=== PATIENT | female | born 1950 | race Caucasian/White ===

== ENCOUNTER → 2017-02-08 | Outpatient (CLI) | payer OTHER, BC ==
[~2017-02-08] MED LIST: ALBUAER19 INH; CHOL2000 PO; DILT1TAB PO; LISI40TA PO; LPT10 PO; MONT1TAB5 PO; MULT-506 PO; OFLO0.3S OPR; PRED1SUS3 OPL; VENL75CA73 PO
[2017-02-08 16:13] LABS: BLOOD UREA NITROGEN 14 mg/dl (7-18); BUN/CREATININE RATIO 22.8 (10-20); CALCIUM 9.7 mg/dl (8.5-10.1); CARBON DIOXIDE 31 mmol/L (21-32); CHLORIDE 106 mmol/L (98-107); CREATININE 0.61 mg/dl (0.60-1.20); GLUCOSE 87 mg/dl (70-99); HDL CHOLESTEROL 55 mg/dl; POTASSIUM 4.7 mmol/L (3.5-5.1); SODIUM 142 mmol/L (136-145)
[2017-02-08 16:17] LABS: ALB/GLOB RATIO 1.2 (0.9-2); ALKALINE PHOSPHATASE 83 U/L (45-117); ALT/SGPT 12 U/L (12-78); AST/SGOT 17 U/L (15-37); CHOLESTEROL 209 mg/dl (0-200); CHOLESTEROL/HDL RATIO 3.8; LDL CHOLESTEROL CALCULATED 120 mg/dl; TRIGLYCERIDES 171 mg/dl (0-150); VERY LOW DENSITY LIPOPROT CALC 34 mg/dl
== END | disposition home or self-care (01) ==
LOC: C.LAB 15:12
PROVIDERS: ATTEND Nurse Practitioner Family
DX: Z11.59 Encounter for screening for other viral diseases (principal); E78.5 Hyperlipidemia, unspecified

== ENCOUNTER → 2017-05-18 | Outpatient (CLI) | payer OTHER, BC ==
--- NOTE | 2017-05-18 12:41 | MAMMOGRAPHY REPORT ---
BILATERAL DIGITAL DIAGNOSTIC MAMMOGRAM TOMOSYNTHESIS WITH CAD AND TARGETED BILATERAL ULTRASOUND: 05/18 CLINICAL HISTORY: The patient reports bilateral breast lumps and focal left breast pain. She reports a recent weight loss of approximately 65 pounds. Family history of breast cancer in her mother. TECHNIQUE: Breast tomosynthesis in addition to standard 2D mammography was performed. Current study was also evaluated with a Computer Aided Detection (CAD) system. Bilateral CC and MLO 2-D and tomosy nthesis images were obtained. COMPARISON: Comparison is made to exams dated: 08/03/2016 ultrasound, 08/03/2016 mammogram, 6 mammogram, 08/25/2014 mammogram, 02/21/2014 ultrasound, and 08/14/2013 mammogram - [facility]. BREAST COMPOSITION: The tissue of both breasts is almost entirely fatty. FINDINGS: Garfield markers rosario the site of the palpable lumps in the right upper outer breast and left upper inner breast. A square marker duke the site of pain in the left upper outer breast. The re are no suspicious masses, calcifications, or areas of architectural distortion noted in either corey ast. There has been no significant interval change compared to prior exams. Bilateral benign-appear ing calcifications are not significantly changed. Targeted ultrasound was performed of the areas of the palpable lumps pointed out by the patient, in t he right breast at 9:00, approximately 5 cm from the nipple, as well as the left breast at 9:30, appr oximately 3 cm from the nipple. Targeted ultrasound was also performed of the area of pain pointed o ut by the patient, in the left breast at 3:00 approximately 10 cm from the nipple. Sonographically n ormal tissue is seen in these regions, without evidence of a mass or other suspicious sonographic abn ormality. IMPRESSION: ACR BI-RADS CATEGORY 2: BENIGN, TARGETED ULTRASOUND ACR BI-RADS CATEGORY 2: BENIGN No suspicious mammographic or sonographic abnormality at the site of bilateral breast lumps and focal left breast pain. There is no mammographic or targeted sonographic evidence of malignancy. Recomme nd clinical follow-up for breast lumps/pain and recommend routine bilateral screening mammograms in o ne year. The patient has been verbally notified of the results. Approximately 10% of breast cancers are not detected with mammography. A negative mammographic report should not delay biopsy if a clinically suggestive mass is present. Elizabeth Harry M.D. ah/:05/18/2017 09:47:50 Group Reservations Coordinator: Odalys SILVA)([place]), [facility] letter sent: Normal 1/2 BI-RADS Code: ACR BI-RADS Category 2: Benign Ultrasound BI-RADS: ACR BI-RADS Category 2: Benign
== END | disposition home or self-care (01) ==
LOC: C.MAMM 08:53
PROVIDERS: ATTEND Obstetrics & Gynecology
DX: N63 Unspecified lump in breast (principal); N64.4 Mastodynia; Z80.3 Family history of malignant neoplasm of breast

== ENCOUNTER → 2017-08-22 | Outpatient (CLI) | payer OTHER, BC ==
[2017-08-22 14:42] LABS: BASO % 0.9 %; BASO ABS # 0.08 K/uL (0-0.2); COMPLETE YES; EOS % 3.2 %; HEMATOCRIT 42.2 % (37-47); IG% 1.3 %; LYMPH % 37.3 %; LYMPH ABS # 3.35 K/uL (1.2-3.4); MEAN CELL VOLUME 93.4 fL (80-100); MEAN CORPUSCULAR HEMOGLOBIN 31.2 pg (25-34); MEAN CORPUSCULAR HGB CONC 33.4 g/dl (32-36); MEAN PLATELET VOLUME 9.8 fL (7.4-10.4); MONO % 8.2 %; NEUT % 49.1 %; PLATELET COUNT 316 K/uL (130-400); RED BLOOD COUNT 4.52 M/uL (4.2-5.4); WHITE BLOOD COUNT 8.98 K/uL (4.8-10.8)
[2017-08-22 15:12] LABS: ALT/SGPT 14 U/L (12-78); AST/SGOT 22 U/L (15-37); BLOOD UREA NITROGEN 16 mg/dl (7-18); BUN/CREATININE RATIO 25.9 (10-20); CALCIUM 9.6 mg/dl (8.5-10.1); CARBON DIOXIDE 29 mmol/L (21-32); CHLORIDE 105 mmol/L (98-107); CREATININE 0.63 mg/dl (0.60-1.20); GLUCOSE 82 mg/dl (70-99); POTASSIUM 3.9 mmol/L (3.5-5.1); SODIUM 138 mmol/L (136-145)
[2017-08-22 15:21] LABS: ALB/GLOB RATIO 1.1 (0.9-2); ALKALINE PHOSPHATASE 90 U/L (45-117); CHOLESTEROL 198 mg/dl (0-200); CHOLESTEROL/HDL RATIO 3.6; HDL CHOLESTEROL 55 mg/dl; LDL CHOLESTEROL CALCULATED 112 mg/dl; TRIGLYCERIDES 154 mg/dl (0-150); VERY LOW DENSITY LIPOPROT CALC 31 mg/dl
== END | disposition home or self-care (01) ==
LOC: C.LAB 13:48
PROVIDERS: ATTEND Nurse Practitioner Family
DX: I10 Essential (primary) hypertension (principal); E78.5 Hyperlipidemia, unspecified; J45.909 Unspecified asthma, uncomplicated; E66.9 Obesity, unspecified; F41.8 Other specified anxiety disorders

== ENCOUNTER → 2017-08-23 | Outpatient (CLI) | payer OTHER, BC | END | disposition home or self-care (01) | LOC: C.LAB 14:48 | PROVIDERS: ATTEND Nurse Practitioner Family | DX: J45.909 Unspecified asthma, uncomplicated (principal); E66.9 Obesity, unspecified; F41.8 Other specified anxiety disorders ==

== ENCOUNTER → 2017-09-07 | Outpatient (CLI) | payer OTHER, BC | END | disposition home or self-care (01) | LOC: C.MAMM 12:53 | PROVIDERS: ATTEND Nurse Practitioner Family | DX: M81.0 Age-related osteoporosis without current pathological fracture (principal) ==

== ENCOUNTER → 2017-11-03 | Outpatient (CLI) | payer OTHER, BC ==
[~2017-11-03] MED LIST changes: +ATOR10TA82 PO; +CHOL1000 PO; +MONT1TAB3 PO; +MULTTAB58 PO; +VENL150C56 PO; +VNTHFA/IN INH
== END | disposition home or self-care (01) ==
LOC: C.PATHSPEC 15:48
PROVIDERS: ATTEND Obstetrics & Gynecology
DX: L90.0 Lichen sclerosus et atrophicus (principal)